=== PATIENT | female | born 1975 | race Caucasian/White ===

== ENCOUNTER → 2018-08-25 | Outpatient (CLI) | payer BC | LOC: ULTRA 11:15 | DX: E04.1 Nontoxic single thyroid nodule (principal) ==

== ENCOUNTER → 2020-12-11 | Outpatient (CLI) | payer BC ==
--- NOTE | 2020-12-14 14:07 | PATH ---
[facility] [address] [place] [address] PATHOLOGY RPT PROCEDURE Name: FADI SWANSON Room #: [facility].#: [id number] Admission: 12/11/20 Date of : 71 Discharge: Report #: [id number] Path Case #: [id number] Note [facility] Accession Number: [id number] TESTS RESULT FLAG UNITS REF RANGE LAB Clinician Provided Cytology Information No. of containers..01 Other (Miscellaneous) Source: RIGHT THYROID DIAGNOSIS: RIGHT THYROID NEGATIVE FOR MALIGNANT CELLS. B[place] CATEGORY II. SPECIMEN CONSISTS OF GROUPS OF FOLLICULAR CELLS, HEMOSIDERIN-LADEN MACROPHAGES, COLLOID, AND BLOOD. THIS PATTERN IS COMPATIBLE WITH A COLLOID NODULE. WATERY AND DENSE COLLOID PRESENT. NEGATIVE FOR NUCLEAR FEATURES OF PAPILLARY THYROID CARCINOMA. 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 Pathologist ICD10: 02 E04.1 Signed out by: Ama Mathew MD, Pathologist NPI- [id number] Performed by: Carlton Reed, [employer] ([facility]) Gross description: 01 30ML, CLEAR ORANGE, 2FX 2AD /LCS 12/12/20202038 Local FLAG LEGEND: L-Low Normal,H-High Normal,LL-Alert Low,HH-Alert High <-Panic Low,>-Panic High,A-Abnormal,AA-Critical Abnormal Performed at: [address] [place] [address] Jacobo Beckham MD, [address] [id number] Radha Mathew MD, Specimen Comment: A duplicate report has been generated due to demographic updates. Performed at: 01 [facility] [address] [place] [address] PATHOLOGY RPT PROCEDURE Name: FADI SWANSON Room #: REG [facility]#: [id number] Admission: 12/11/20 Date of : 71 Discharge: Report #: [id number] Path Case #: [id number] [address] [facility] [address], [place], [place] [id number] MD Jacobo Beckham MD Phone: [phone]
== END | disposition home or self-care (01) ==
LOC: ULTRA 10:13
PROVIDERS: ATTEND Otolaryngology
DX: E04.1 Nontoxic single thyroid nodule (principal)